=== PATIENT | male | born 1975 | race African-American/Black ===

== ENCOUNTER 2016-12-04 09:38 | Emergency (ER) | payer OTHER ==
--- NOTE | 2016-12-04 09:53 | PDOC ---
History of Present Illness - History of Present Illness Initial Comments: 12/04/16 10:31 The patient is a 41 year old male, with no significant past medical history, who presents to the emergency department with chest pressure and shortness of breath since this morning. Patient states he has been visiting the emergency department for the same complaint for a lot recently. This morning he says that he was going to the bathroom when he began to feel dizzy and short of breath as well as an accompanied pressure-like sensation on his chest. Patient say she experienced this on Friday (4 days ago) when he was getting his hair done. At the time he felt light-headed and short of breath. Patient states he exercises regularly, and maintains a healthy diet. He works as an motor electrician. Patient states he has been under a moderate amount of stress recently. He denies any recent fevers, chills, headache. He denies any recent nausea, vomit, diarrhea or constipation. He denies any recent dysuria, frequency, urgency or hematuria. Allergies: NKA Past surgical history: None reported. FMHx: None reported Social History: Former smoker (quit 20 years ago). Social drinker. Denies recreational drug use. Primary Care Physician: Marly Lewis <Tuyet Emerson - Last Filed: 12/04/16 10:34> <Linh Connolly - Last Filed: 12/04/16 11:51> - General Stated Complaint: SOB Time Seen by Provider: 12/04/16 09:50 Past History <Tuyet Emerson - Last Filed: 12/04/16 10:34> <Linh Connolly - Last Filed: 12/04/16 11:51> - Past Medical History Allergies/Adverse Reactions: Allergies Allergy/AdvReac Type Severity Reaction Status Date / Time No Known Allergies Allergy Verified 12/04/16 09:56 Home Medications: Ambulatory Orders Aspirin [ASA -] 81 mg PO DAILY 12/04/16 Lorazepam [Ativan] 0.5 mg PO TID #15 tablet MDD 3 12/04/16 Review of Systems - Review of Systems Comments:: 12/04/16 10:32 GENERAL/CONSTITUTIONAL: No fever or chills. No weakness. HEAD, EYES, EARS, NOSE AND THROAT: No change in vision. No ear pain or discharge. No sore throat. CARDIOVASCULAR: +chest pain +shortness of breath. RESPIRATORY: No cough, wheezing, or hemoptysis. GASTROINTESTINAL: No nausea, vomiting, diarrhea or constipation. GENITOURINARY: No dysuria, frequency, or change in urination. MUSCULOSKELETAL: No joint or muscle swelling or pain. No neck or back pain. SKIN: No rash NEUROLOGIC: No headache, vertigo, loss of consciousness, or change in strength/ sensation. ENDOCRINE: No increased thirst. No abnormal weight change. HEMATOLOGIC/LYMPHATIC: No anemia, easy bleeding, or history of blood clots. ALLERGIC/IMMUNOLOGIC: No hives or skin allergy. <Tuyet Emerson - Last Filed: 12/04/16 10:34> *Physical Exam - Vital Signs Last Vital Signs Temp Pulse Resp BP Pulse Ox 97.3 F L 59 L 18 133/94 100 12/04/16 09:56 12/04/16 09:56 12/04/16 09:56 12/04/16 09:56 12/04/16 10:00 - Physical Exam Comments: 12/04/16 10:32 GENERAL: Awake, alert, and fully oriented, in no acute distress HEAD: No signs of trauma EYES: PERRLA, EOMI, sclera anicteric, conjunctiva clear ENT: Auricles normal inspection, hearing grossly normal, nares patent, oropharynx clear without exudates. Moist mucosa NECK: Normal ROM, supple, no lymphadenopathy, JVD, or masses LUNGS: Breath sounds equal, clear to auscultation bilaterally. No wheezes, and no crackles HEART: Regular rate and rhythm, normal S1 and S2, no murmurs, rubs or gallops ABDOMEN: Soft, nontender, normoactive bowel sounds. No guarding, no rebound. No masses EXTREMITIES: Normal range of motion, no edema. No clubbing or cyanosis. No cords, erythema, or tenderness NEUROLOGICAL: Cranial nerves II through XII grossly intact. Normal speech, normal gait SKIN: Warm, Dry, normal turgor, no rashes or lesions noted. <Tuyet Emerson - Last Filed: 12/04/16 10:34> ED Treatment Course - LABORATORY CBC & Chemistry Diagram: 12/04/16 11:00 12/04/16 11:00 <Linh Connolly - Last Filed: 12/04/16 11:51> Medical Decision Making - Medical Decision Making 12/04/16 11:32 labs are normal. CXR pending. Pt given 2mg PO ativan in the ER. I will give him a 5 day supply of 0.5mg ativan PO TID. Pt must follow with PMD; psychiatry and with cardiology outpatient. <Linh Connolly - Last Filed: 12/04/16 11:51> *DC/Admit/Observation/Transfer - Attestations Scribe Attestion: 12/04/16 10:33 Documentation prepared by Tuyet Emerson, acting as medical physics professor for Linh Connolly MD. <Tuyet Emerson - Last Filed: 12/04/16 10:34> <Linh Connolly - Last Filed: 12/04/16 11:51> Diagnosis at time of Disposition: Anxiety, Panic attack - Discharge Dispostion Disposition: HOME Condition at time of disposition: Improved - Prescriptions Prescriptions: Lorazepam [Ativan] 0.5 mg PO TID #15 tablet MDD 3 - Referrals Referrals: Marly Lewis MD [Primary Care Provider] - - Patient Instructions Printed Discharge Instructions: DI for Atypical Chest Pain, Anxiety and Panic Attacks (Alternative Therapy), DI for Panic Disorder Additional Instructions: Consider getting a cardiac catheterization and a stress test.
[2016-12-04] MEDS ORDERED: ASPIRIN 81 MG CHEWABLE TABLETS PO ONE (10:13)
[2016-12-04 10:23] VITALS: BMI 23.4
[2016-12-04] MEDS ORDERED: LORazepam 1 MG TABLET PO ONE (10:23)
[2016-12-04] MEDS ORDERED: LORazepam 0.5 MG TABLET ONE (10:28)
[2016-12-04] MEDS ORDERED: ASPIRIN 81 MG CHEWABLE TABLETS ONE (10:29)
[2016-12-04 11:07] LABS: BASOPHIL 0.9 % (0-2.0); EOSINOPHIL 2.5 % (0-4.5); MCH 29.3 pg (25.7-33.7); MCHC 31.9 g/dl (32.0-35.9); MEAN CELL VOLUME 91.8 fl (80-96); MEAN PLT VOLUME 7.9 fl (7.5-11.1); NEUTROPHILS 70.1 % (42.8-82.8); PLATELET COUNT 272 K/MM3 (134-434); RDW 12.3 % (11.9-15.9); WHITE BLOOD COUNT 4.7 K/mm3 (4.0-10.0)
[2016-12-04 11:25] LABS: ALBUMIN 4.1 g/dl (3.4-5.0); ANION GAP 5 (8-16); BILIRUBIN,TOTAL 0.9 mg/dL (0.2-1.0); CALCIUM 9.1 mg/dL (8.5-10.1); CO2 33 mmol/L (21-32); CREATININE 1.1 mg/dL (0.7-1.3); GLUCOSE,RANDOM 102 mg/dL (74-106); SGOT/AST 20 U/L (15-37); SGPT/ALT 28 U/L (12-78); TOT PROT 7.6 g/dl (6.4-8.2)
[2016-12-04 11:28] LABS: ALK PHOS 35 U/L (45-117); CPK 172 IU/L (39-308); TROPONIN I < 0.02 ng/ml (0.00-0.05)
[2016-12-04 11:47] LABS: INR 1.13 (0.82-1.09); PROTHROMBIN TIME (PATIENT) 12.4 SEC (9.98-11.88)
[2016-12-04 12:06] VITALS: BP 134/83; PULSE 75; TEMP 98.1
[2016-12-04 12:44] LABS: URINE MARIJUANA THC NEGATIVE ng/ml (CUTOFF=50)
--- NOTE | 2016-12-05 11:57 | EKG ---
Test Reason : Blood Pressure : / mmHG Vent. Rate : 063 BPM Atrial Rate : 063 BPM P-R Int : 166 ms QRS Dur : 080 ms QT Int : 384 ms P-R-T Axes : 067 033 053 degrees QTc Int : 392 ms NORMAL SINUS RHYTHM ST ELEVATION, CONSIDER EARLY REPOLARIZATION, PERICARDITIS, OR INJURY NONSPECIFIC ST AND T WAVE ABNORMALITY ABNORMAL ECG NO PREVIOUS ECGS AVAILABLE Confirmed by PINKY MCKEON, MIGNON ([id number]) on 12/05/2016 11:57:39 AM Referred By: Confirmed By:MIGNON VANCE MD
== END 2016-12-04 14:55 | disposition home or self-care (01) ==
LOC: JER 09:38
DX: F41.9 Anxiety disorder, unspecified (principal)
CPT/HCPCS: 36415; 71020-TC; 80053; 80307; 82550; 82553; 84484; 85025; 85610; 85730; 93005; 93010; 99284-25